=== PATIENT | female | born 1955 | race Asian ===

== ENCOUNTER 2016-09-13 04:58 | Day surgery (SDC) | payer OTHER ==
[2016-09-12 14:08] VITALS: BMI 20.9
[2016-09-13] MEDS ORDERED: ROPIVACAINE HCL 0.5% 30ML VIAL ONE (07:12)
[2016-09-13] MEDS ORDERED: MIDAZOLAM HCL 2 MG/2 ML SINGLE DOSE VIAL ONE ×2 (07:14)
[2016-09-13] MEDS ORDERED: SODIUM CHLORIDE 0.9% P/F 10 ML VIAL IJ ONE (07:38)
[2016-09-13] MEDS ORDERED: ePHEDrine SULFATE 50 MG/1 ML AMPULE ONE (07:38)
[2016-09-13] MEDS ORDERED: KETOROLAC TROMETHAMINE 30 MG/1 ML VIAL ONE (07:38)
[2016-09-13] MEDS ORDERED: ceFAZolin SODIUM 1 GM VIAL ONE ×2 (07:38→11:47)
[2016-09-13] MEDS ORDERED: DEXAMETHASONE SOD PHOSPHATE 4 MG/1 ML VIAL ONE (07:38)
[2016-09-13] MEDS ORDERED: PROPOFOL 20 ML ONE ×2 (07:39)
[2016-09-13] MEDS ORDERED: SUCCINYLCHOLINE CHLORIDE 200 MG/10 ML VIAL ONE (07:39)
[2016-09-13] MEDS ORDERED: ROCURONIUM BROMIDE 50 MG/5 ML VIAL ONE (07:40)
--- NOTE | 2016-09-13 07:51 | HP ---
[facility]ellite [facility] - Chief Complaint Chief Complaint: right shoulder pain - Past Medical History Allergies/Adverse Reactions: Allergies Allergy/AdvReac Type Severity Reaction Status Date / Time No Known Allergies Allergy Verified 09/13/16 06:52 - Current Medications Current Medications: Medication Instructions Recorded Latanoprost [Xalatan] 1 gtt OU HS 05/27/12 Dorzolamide HCl/Timolol Maleat 10 ml OU BID 09/12/16 [Cosopt Eye Drops] Oxycodone HCl/Acetaminophen 1 - 2 tab PO Q6H #50 tab MDD 8 09/13/16 [Percocet 5-325 mg Tablet -] Satellite Physical Exam - Physical Examination Vital Signs: Vital Signs Period Temp Pulse Resp BP Sys/Tomas Pulse Ox Last 24 Hr 97.9 F 75 16 134/74 99 General Appearance: Well Nourished, Well Developed, Alert & Oriented x3 ENT: Clear Lung: Normal air movement Heart: Regular rate & rhythm Extremities: Other (right shoulder- + ttp, decr rom, + empty can, nvi MRI + rct) Neurological: Intact, Alert, Oriented Satellite Impression/Plan - Impression/Plan Impression: right shoulder rct Operative Procedure: right shoulder arthroscoy RCR, SAD Date to be Performed: 09/13/16
--- NOTE | 2016-09-13 09:04 | OP ---
Operative Note - Note: Operative Date: 09/13/16 ([facility]) Pre-Operative Diagnosis: right shoulder rct Operation: right shoulder arthroscopy with RCR, SAD, extensive debridement of bone and soft tissue Post-Operative Diagnosis: Same as Pre-op Surgeon: Bradley Alatorre Automation Analyst: Jak Toledo Anesthesiologist/CUT OFF SAW GRADER: Ron Weathers Jr. Anesthesia: General, Local Specimens Removed: shavings Estimated Blood Loss (mls): 5 Operative Report Dictated: Yes
--- NOTE | 2016-09-13 09:26 | SPEC ---
DATE OF OPERATION: 09/13/2016 PREOPERATIVE DIAGNOSIS: Right rotator cuff tear. POSTOPERATIVE DIAGNOSIS: Right rotator cuff tear. PROCEDURE: Arthroscopy right shoulder with subacromial debridement of bone and soft tissue and rotator cuff repair using SpeedBridge. SURGICAL ATTENDING: Bradley Alatorre M.D. MACHINE TRACER: JOSSELYN Caceres ANESTHESIA: Regional and general. CLOSURE: Arthrex SpeedBridge for rotator cuff and 3-0 nylon for skin. ESTIMATED BLOOD LOSS: Negligible. COMPLICATIONS: None. CONDITION: To recovery room in stable condition. DESCRIPTION OF OPERATIVE PROCEDURE: Patient was taken to the operating room on September 13, 2016. Scalene block as well as general anesthesia was administered by the anesthesiologist. Intravenous Kefzol was administered prophylactically prior to the case. Patient was placed in the beach chair position with all prominences well padded. The right shoulder area was prepped and draped in the usual sterile fashion. First a diagnostic arthroscopy of the glenohumeral joint was performed. A posterior portal was made 2 fingerbreadths below the acromion, first with a 15 blade followed by a blunt trocar. Circumferential exam of the glenohumeral joint revealed the following: Intact glenoid and humeral articular cartilage, intact labrum circumferentially, intact biceps and biceps anchor. There were no loose bodies in the axillary pouch. Intact subscapularis to its insertion. Looking superiorly the shoulder had a rotator cuff tear in a crescent formation. The trocar was removed from the shoulder. Next, the posterior trocar was redirected in the subacromial space. An accessory lateral portal was made using a 15 blade followed by a blunt trocar. An anterior portal was made at the level of the AC joint with a spinal needle, a 15 blade, and a blunt trocar. An extensive bursectomy and debridement of soft tissue encasing the humeral head was performed using the ArthroCare device and the shaver. Extensive bone hanging down from the acromion was debrided using the Acromionizer marti up to the appropriate level. The coracoacromial ligament was identified and detached off the anterior acromion and visualized to drop inferiorly and was further debrided. An acromioplasty was then performed using the Acromionizer marti up to the appropriate level. All particular debris in the shoulder was debrided using the shaver. Soft tissue encasing the rotator cuff was debrided using the shaver and the ArthroCare device exposing the rotator cuff tear beneath. The leading edge of the rotator cuff was debrided using the shaver. The greater tuberosity was cleaned of soft tissue, and a thin layer of bone was removed giving a nice bleeding surface for the rotator cuff repair. Two medial row anchors with pre-loaded FiberTape suture were malleted down at the articular margin and shuttled through the anterior portal. Each anchor had two limbs of the FiberTape suture. Individually they were shuttled back to the lateral portal. They were passed in a fanned-out position through the rotator cuff using the [employer] suture passer. After this was done, one of the posterior sutures was passed more anteriorly, and one of the anterior sutures was passed posteriorly. They were both passed through the eyelet hole of the lateral anchors and then malleted and screwed into place, both anteriorly and posteriorly. This pulled the rotator cuff down and matted it down to the greater tuberosity. The sutures were cut snug. Probing revealed excellent repair of the rotator cuff to the greater tuberosity. The shoulder was irrigated with copious amounts of irrigation. All three portals were closed with 3-0 nylon. A sterile pressure dressing following by a shoulder immobilizer was placed on the right upper extremity. The patient was awakened from anesthesia and transferred to the recovery room in stable condition. No complications. Estimated blood loss was negligible. Lupe [id number]
[2016-09-13] MEDS ORDERED: oxyCODONE HCL 5 MG TABLET PO PRN (10:42)
[2016-09-13] MEDS ORDERED: ONDANSETRON 4 MG/2 ML VIAL IVPUSH PRN (10:42)
[2016-09-13 11:39] VITALS: TEMP 98.2
[2016-09-13 14:35] VITALS: BP 111/70; PULSE 54
--- NOTE | 2016-09-16 12:50 | PATH ---
Surgical Pathology Report Patient Name: NOA PARIS [facility]. Rec. #: [id number] /Age/Gender: 1955 (Age: 61) / F Account: [id number] Location: [facility] SURGICAL Taken: 09/13/2016 Received: 09/13/2016 Reported: 09/16/2016 Physicians: Bradley Alatorre M.D. Specimen(s) Received SHAVINGS RIGHT SHOULDER Clinical History Right shoulder impingement syndrome Final Diagnosis SOFT TISSUE, RIGHT SHOULDER, ARTHROSCOPIC SHAVINGS: SYNOVIUM AND FIBROCARTILAGE WITH MYXOHYALINE DEGENERATION. FRAGMENTS OF UNREMARKABLE BONE AND SKELETAL MUSCLE. Electronically Signed Saran Garvey M.D. Gross Description Received in formalin, labeled "right shoulder shavings" is a 3.0 x 2.5 x 0.3 cm aggregate of leos-yellow soft tissue fragments. A manufacturer's representative portion is submitted in one cassette. /09/13/201609/13/2016
== END 2016-09-13 12:30 | disposition home or self-care (01) ==
LOC: JASU-SURG 04:58
PROVIDERS: ATTEND Orthopaedic Surgery
PROC: 0RNJ4ZZ Release Right Shoulder Joint, Percutaneous Endoscopic Approach (ICD-10-PCS; principal; 2016-09-13 08:00)
PROC: 0LQ14ZZ Repair Right Shoulder Tendon, Percutaneous Endoscopic Approach (ICD-10-PCS; 2016-09-13 08:00)
DX: M75.101 Unspecified rotator cuff tear or rupture of right shoulder, not specified as traumatic (principal)
CPT/HCPCS: 88304-TC; 94760